=== PATIENT | female | born 1990 | race Hispanic/Latino ===

== ENCOUNTER 2021-06-28 11:39 | Inpatient (IN) | payer OTHER ==
[~2021-06-28] VITALS: Ht 154.9 cm; Wt 56.4 kg
[2021-06-28] VITALS (23 sets, daily range): BP systolic 90–152; BP diastolic 48–86
[2021-06-28] MEDS ORDERED: ACYC1CAP20 PO (13:05)
[2021-06-28] MEDS ORDERED: PRENTAB9 PO (13:05)
[2021-06-28] MEDS ORDERED: HOME MED LIST COMPLETE! XX SCH (13:10)
[2021-06-28 13:51] LABS: HEMATOCRIT 38.7 % (36.0-47.0); HEMOGLOBIN 13.1 g/dl (12.0-15.5); MEAN CORPUSCULAR HEMOGLOBIN 31.3 pg (27.0-33.0); MEAN CORPUSCULAR HGB CONC 33.9 g/dl (32.0-36.5); MEAN CORPUSCULAR VOLUME 92.4 fl (80.0-96.0); PLATELET COUNT, AUTOMATED 236 10^3/uL (150-450); RED BLOOD COUNT 4.19 10^6/uL (4.00-5.40); WHITE BLOOD COUNT 13.6 10^3/uL (4.0-10.0)
[2021-06-28] MEDS ORDERED: OXYTOCIN 30 UNITS IN 0.9% NaCl 500ML IV BAG (J2590) As Ordered ONE (14:33)
[2021-06-28] MEDS ORDERED: OXYTOCIN DRIP 30 UNITS in IV 1 EA IV SCH (14:40)
[2021-06-28] MEDS ORDERED: LACTATED RINGER'S 1000 ML IV STA (16:10)
[2021-06-28] MEDS ORDERED: FENTANYL 2MCG/ML ROPIVACAINE 0.2% IN 0.9% NACL 100ML IVBAG As Ordered ONE (16:19)
[2021-06-28] MEDS ORDERED: EPIDURAL/PCA KEYS XX PRN (17:55)
[2021-06-28] MEDS ORDERED: ePHEDrine SULFATE 25 MG/5 ML(5MG/ML) SYRINGE IV PRN (17:55)
[2021-06-28] MEDS ORDERED: REFRIGERATOR IV KEYS XX PRN (17:55)
[2021-06-28] MEDS ORDERED: NALOXONE INJ 0.4MG/1ML VIAL (J2310 PER 1MG) IV PRN (17:55)
[2021-06-28] MEDS ORDERED: FENTANYL/ROPIVACAINE/NACL BAG 100 ML EPIDURAL SCH (17:55)
[2021-06-28] MEDS ORDERED: ONDANSETRON 4MG/2ML VIAL IV PRN (17:55)
[2021-06-28] MEDS ORDERED: LACTATED RINGER'S 1000 ML IV PRN (17:55)
[2021-06-28] MEDS ORDERED: diphenhydrAMINE 50MG/ML VIAL (J1200) IV PRN (17:55)
[2021-06-28] MEDS ORDERED: EPIDURAL COMMENT XX SCH (17:55)
[2021-06-28 21:15] LABS: HEMATOCRIT 28.9 % (36.0-47.0); MEAN CORPUSCULAR HEMOGLOBIN 31.1 pg (27.0-33.0); MEAN CORPUSCULAR HGB CONC 33.6 g/dl (32.0-36.5); MEAN CORPUSCULAR VOLUME 92.6 fl (80.0-96.0); PLATELET COUNT, AUTOMATED 184 10^3/uL (150-450); RED BLOOD COUNT 3.12 10^6/uL (4.00-5.40); WHITE BLOOD COUNT 13.6 10^3/uL (4.0-10.0)
[2021-06-28 21:23] LABS: HEMOGLOBIN 9.7 g/dl (12.0-15.5)
[2021-06-28 21:29] LABS: INR 1.07; PROTHROMBIN TIME 14.3 SECONDS (12.7-14.5)
[2021-06-28 21:30] LABS: PARTIAL THROMBOPLASTIN TIME 27.9 SECONDS (25.9-37.0)
[2021-06-28] MEDS ORDERED: ACETAMINOPHEN 500 MG TAB PO PRN (21:40)
[2021-06-28] MEDS ORDERED: MEASLES,MUMPS,RUBELLA VACCINE INJ (MMR-II) (90707) SC SCH (21:40)
[2021-06-28] MEDS ORDERED: METHYLERGONOVINE MALEATE 0.2 MG TAB PO PRN (21:40)
[2021-06-28] MEDS ORDERED: IBUPROFEN 800 MG TAB PO PRN (21:40)
[2021-06-28] MEDS ORDERED: DIBUCAINE 1% OINTMENT 30GM TOP PRN (21:40)
[2021-06-28] MEDS ORDERED: DOCUSATE SODIUM 100MG CAPSULE PO PRN (21:40)
[2021-06-29] MEDS ORDERED: ACET-683 PO (06:39)
[2021-06-29] MEDS ORDERED: IBUP80TA PO (06:39)
[2021-06-29] MEDS ORDERED: COLA100C5 PO (06:39)
[2021-06-29] MEDS ORDERED: FERR240T PO (06:41)
[2021-06-29 06:46] VITALS: BP 110/67
[2021-06-29] MEDS ORDERED: PRENATAL VITAMINS CHEWABLE TABLET PO SCH (09:00)
[2021-06-29 19:08] LABS: CYTOMEGALOVIRUS IgM ANTIBODY <30.0 AU/mL (0.0-29.9); HSV IgM TYPES 1&2 <0.91 Ratio (0.00-0.90); HSV TYPE I IgG SPECIFIC >62.20 index (0.00-0.90); HSV TYPE II IgG SPECIFIC 2.28 index (0.00-0.90); RUBELLA IgG FOR TORCH EVAL <0.90 index (Immune >0.99); RUBELLA IgM FOR TORCH EVAL <20.0 AU/mL (0.0-19.9); TOXOPLASMA IgG ABY <3.0 IU/mL (0.0-7.1)
== END 2021-06-29 06:58 | disposition home or self-care (01) | DRG 805 ==
LOC: M LDO 11:39 → M LDI 12:17 → UNDOADMIN 12:17
PROVIDERS: ADMIT Obstetrics & Gynecology; ATTEND Obstetrics & Gynecology
PROC: 10E0XZZ Delivery of Products of Conception, External Approach (ICD-10-PCS; principal; 2021-06-28)
PROC: 10907ZC Drainage of Amniotic Fluid, Therapeutic from Products of Conception, Via Natural or Artificial Opening (ICD-10-PCS; 2021-06-28)
DX: O34.32 Maternal care for cervical incompetence, second trimester (principal); Z37.1 Single stillbirth; O45.92 Premature separation of placenta, unspecified, second trimester; O69.0XX0 Labor and delivery complicated by prolapse of cord, not applicable or unspecified; Z3A.23 23 weeks gestation of pregnancy; O32.1XX0 Maternal care for breech presentation, not applicable or unspecified

== ENCOUNTER → 2023-11-16 | Outpatient (CLI) | payer OTHER ==
[~2023-11-16] MED LIST: ACET-683 PO; ACYC1CAP20 PO; COLA100C5 PO; FERR240T PO; IBUP80TA PO; PRENTAB9 PO
== END ==
LOC: M RAD 07:12
PROVIDERS: ATTEND Internal Medicine Gastroenterology
DX: R10.84 Generalized abdominal pain (principal)